=== PATIENT | male | born 1955 | race Caucasian/White ===

== ENCOUNTER → 2016-11-05 | Outpatient (CLI) | payer OTHER ==
[~2016-11-05] MED LIST: ASPEC325 PO; CLB200 PO; FLUO20CA35 PO; HYDR-5688 PO; NABU500T3 PO; OMEP20TA PO; OXYSR10 PO
--- NOTE | 2016-11-05 13:58 | DIAGNOSTIC IMAGING REPORT ---
NUCLEAR MEDICINE THREE-PHASE BONE SCAN OF THE KNEES CLINICAL HISTORY: RIGHT KNEE PAIN COMPARISON STUDY: Conventional radiographic study dated 07/26/2015 FINDINGS: The patient was injected with 26.4 mCi of technetium 99m MDP. Anterior vascular sequence was performed. There is a photopenic defect involving the right knee consistent with a prior knee arthroplasty. There is no significant hyperemia. Blood pool images demonstrate mild increased activity at the level of the right knee. Three-hour delayed images were acquired. There is mild increased activity on the right beneath the level the tibial flange, and adjacent to the femoral component. The findings are nonspecific and not diagnostic of loosening. There is a unexplained focus of increased activity within the distal right tibia. Plain film correlation is advocated. There is also a subtle focus of increased activity in the region of the lateral aspect of the proximal left tibial metaphysis. IMPRESSION: 1. 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 Mild increased activity within the right knee subjacent to the tibial and femoral components. No evidence of significant hyperemia. The findings are nonspecific. 3. Unexplained focus of increased activity involving the distal right tibia. Conventional radiographic correlation is advocated 4. Unexplained focus of increased activity involving the lateral aspect of the proximal left tibial metaphysis. Conventional radiographic correlation is recommended. Electronically signed by: Candelario Quintana M.D. 11/05/2016 1:57 PM Dictated Date/Time: 11/05/2016 1:50 PM
== END | disposition home or self-care (01) ==
LOC: C.NUCL 08:50
PROVIDERS: ATTEND Internal Medicine
DX: M25.561 Pain in right knee (principal)